=== PATIENT | male | born 1950 | race Caucasian/White ===

== ENCOUNTER 2025-01-17 08:27 | Outpatient (AMB) | payer MEDICARE, BC, SELFPAY ==
--- NOTE | 2025-01-17 08:31 | MHC.OFFVIS ---
Intake Visit Reasons: 6 month f/u Allergies No Known Allergies Allergy (Verified 01/17/25 08:32) Medication List - Last Reconciled 01/17/25 by Savanna Camarillo CNP atorvastatin 40 mg PO BEDTIME carbidopa-levodopa 25-100 mg 1 tab PO TID lisinopril 10 mg PO QAM lorazepam 0.5 mg PO QPM metformin 500 mg PO QAM metoprolol tartrate 50 mg PO TID HPI Comments Details: He was doing okay. Right hand tremor is the same, worse when nervous or anxious. He was taking carbidopa-levodopa three times a day. He did not notice any difference if he missed dose. No functional impairment. No difficulty eating, drinking, or swallowing. No mobility issues. No falls. No trouble turning in bed or getting up from chair. Mood was okay. Sleep was usually okay. Using lorazepam as needed. He was not sure if carbidopa-levodopa was helping and stopped it for about 1 week in 01/2024 without change in symptoms, restarted medication three times a day. No muscle stiffness or mobility issues. Has some right shoulder pain and will occasionally take an extra strength Tylenol. Intermittent right-hand tremor started in 2020. [facility] Medical History (Updated 01/17/25 @ 08:35 by Savanna Camarillo CNP) Parkinsonian tremor Anxiety Hypertension Benign essential tremor Review of Systems Const Denies chills, Denies daytime sleepiness, Reports difficulty sleeping, Denies fatigue, Denies fever(s), Denies frequent falls, Denies headache(s), Denies increased appetite, Denies poor appetite, Denies snoring, Denies weakness, Denies weight gain and Denies weight loss Eyes Denies loss of vision ENT Denies vertigo, Denies dizziness, Denies headache(s) and Denies neck pain Card Denies chest pain at rest, Denies chest pain with activity, Denies syncope, Denies leg edema, Denies palpitations, Denies dyspnea and Denies dyspnea on exertion Resp Denies cough, Denies dyspnea, Denies dyspnea on exertion and Denies snoring GI Denies abdominal pain, Denies constipation, Denies heartburn, Denies diarrhea and Denies nausea Denies urinary frequency, Denies urinary incontinence and Denies urinary urgency Musc Denies abnormal gait, Denies back pain, Denies myalgias, Denies arthralgias, Denies neck pain, Denies numbness and Denies tingling Neuro Denies abnormal gait, Denies vertigo, Denies dizziness, Denies syncope, Denies frequent falls, Denies headache(s), Denies lack of coordination, Denies loss of vision, Denies memory loss, Denies numbness, Denies Other visual disturbances, Denies restless legs, Denies seizure-like activity, Denies tingling, Denies paresthesias, Reports tremor(s) and Denies weakness Psych Reports anxiety, Denies depression, Denies auditory hallucinations, Denies memory loss and Denies visual hallucinations Endo Denies fatigue and Denies palpitations Physical Exam Const Other: General Appearance:? normal, in no acute distress. Heart:? S1, S2 normal, no murmurs. Lungs:? clear anteriorly and posteriorly. Musculoskeletal:? normal. Extremities:? no edema. Psych:? alert, oriented, cognitive function intact, cooperative with exam. Neuro Other: Abnormal Neurological Findings:?Intermittent tremor RUE at rest 8 HZ and at times when hands held up at extended position for > 15 seconds.?Infrequent, intermittent right leg tremor. Mild cogwheeling rigidity in RUE with re-enforcement. Mental Status: alert and oriented X 3. Normal attention, orientation, memory, and affect. Cranial Nerves: Pupils are equal, round, and reactive to light. External ocular muscles are intact. Visual geronimo are full, no ptosis. Face is symmetrical, no facial weakness or droop. Facial sensations are normal. Tongue protrudes in midline. Palate elevates symmetrically. Shoulder shrugging is normal Motor Examination: Normal muscle tone, bulk and strength. No atrophy or fasciculations. No drift of the extended upper extremities. DTR 2+. Plantars are flexor. Sensory Exam: Normal light touch, temperature, pinprick, vibration, and joint-position sensations. Rhomberg sign is absent. Coordination: No ataxia. No titubation. [id number], [id number] test, and rapid alternating movements were normal. Gait Exam: Within normal limits. Cerebellar Signs: [id number] is okay. Extrapyramidal System: Tremor as above. Mild cogwheeling rigidity in RUE with re-enforcement. Normal facial expressions. No bradykinesia. No bradyphrenia. Normal arm swing and posture. No propulsion or retropulsion. Speech: Normal. Assessment & Plan Assessment & Plan (1) Parkinsons disease: Code(s): G20.A1 - Parkinson's disease without dyskinesia, without mention of fluctuations Category: Medical Qualifiers: Dyskinesia presence: without dyskinesia Fluctuating manifestations: without fluctuating manifestations Qualified Code(s): G20.A1 - Parkinson's disease without dyskinesia, without mention of fluctuations Plan: Continue carbidopa-levodopa 25-100mg 1 tablet three times a day. (2) Anxiety: Code(s): F41.9 - Anxiety disorder, unspecified Category: Medical Plan: Continue lorazepam 0.5mg 1 tablet at bedtime Medications: New lorazepam 0.5 mg PO BEDTIME PRN 30 tabs 2RF anxiety 30 days Discontinued lorazepam Discontinued Reason: Order 0.5 mg PO QPM Coding Level of Care Code Est Pt Level 4 (00549) Diagnoses Parkinson's disease without dyskinesia or fluctuating manifestations G20.A1 Dyskinesia presence: without dyskinesia Fluctuating manifestations: without fluctuating manifestations Anxiety F41.9
== END 2025-01-17 08:52 | disposition home or self-care (01) ==
LOC: HO.HSM 08:27
PROVIDERS: PCP Internal Medicine; Referring Provider Internal Medicine; Visit Provider Registered Nurse
DX: G20.A1 Parkinson's disease without dyskinesia, without mention of fluctuations (principal); F41.9 Anxiety disorder, unspecified
CPT/HCPCS: 99214

== ENCOUNTER → 2025-01-17 08:27 | Outpatient (BNVA) | payer MEDICARE, BC, SELFPAY | PROVIDERS: PCP Internal Medicine; Referring Provider Internal Medicine; Visit Provider Registered Nurse | DX: G20.A1 Parkinson's disease without dyskinesia, without mention of fluctuations (principal); F41.9 Anxiety disorder, unspecified | CPT/HCPCS: 99212 ==